=== PATIENT | female | born 1960 | race Caucasian/White ===

== ENCOUNTER 2016-12-25 09:22 | Emergency (ER) | payer BC ==
[2016-12-25] MEDS ORDERED: Ondansetron HCl/PF 4 MG/2 ML Vial ONE (10:46)
--- NOTE | 2017-01-16 15:31 | EKG ---
Test Reason : CP Blood Pressure : / mmHG Vent. Rate : 090 BPM Atrial Rate : 090 BPM P-R Int : 148 ms QRS Dur : 078 ms QT Int : 360 ms P-R-T Axes : 009 -14 -06 degrees QTc Int : 440 ms Normal sinus rhythm Normal ECG Confirmed by KAVON BLANCO D.O. ([id number]), editor publications OSKAR JEFFERSON ([id number]) on 01/16/2017 3:30:47 PM Referred By: Confirmed By:KAVON BLANCO D.O.
== END 2016-12-25 12:30 | disposition home or self-care (01) ==
LOC: ERS 09:22
DX: R11.2 Nausea with vomiting, unspecified (principal); R03.0 Elevated blood-pressure reading, without diagnosis of hypertension; F41.9 Anxiety disorder, unspecified; Z87.891 Personal history of nicotine dependence; Z79.899 Other long term (current) drug therapy
CPT/HCPCS: 93005; 96361; 96374; J2405